=== PATIENT | female | born 1965 | race Caucasian/White ===

== ENCOUNTER 2022-06-08 12:29 | Outpatient (CLI) | payer BC, SELFPAY | END 2022-06-08 12:30 | disposition home or self-care (01) | LOC: AMB 07-22 13:10 | PROVIDERS: Visit Provider Emergency Medicine Emergency Medical Services | DX: R33.9 Retention of urine, unspecified (principal); N19 Unspecified kidney failure; R06.02 Shortness of breath | CPT/HCPCS: A0425; A0426 ==